=== PATIENT | female | born 1975 | race American Indian/Alaskan Native ===

== ENCOUNTER 2020-09-04 00:19 | Emergency (ER) | payer SELFPAY ==
[2020-09-04 00:38] VITALS: BP 143/88
[2020-09-04 01:33] LABS: Basophils % (Auto) 0.4 % (0.0-1.8); Eosinophils # (Auto) 0.1 K/mm3 (0.0-0.4); Eosinophils % (Auto) 0.6 % (0.0-4.3); Hemoglobin 12.4 gm/dl (10.1-14.3); Lymphocytes # (Auto) 3.8 K/mm3 (1.2-5.4); Lymphocytes % (Auto) 39.4 % (13.4-35.0); Mean Corpuscular HGB Conc 33 % (30-34); Mean Corpuscular Volume 85 fl (79-97); Monocytes # (Auto) 0.6 K/mm3 (0.0-0.8); Monocytes % (Auto) 6.2 % (0.0-7.3); Platelet Count 336 K/mm3 (140-440); Red Cell Distribution Width 15.5 % (13.2-15.2)
[2020-09-04 01:58] LABS: Alanine Aminotransferase 12 units/L (7-56); Albumin 4.1 g/dL (3.9-5); BUN/Creatinine Ratio 13; Blood Urea Nitrogen 10 mg/dL (7-17); Calcium 9.5 mg/dL (8.4-10.2); Hemolysis Index 5
[2020-09-04 02:05] LABS: Red Blood Count 4.31 M/mm3 (3.65-5.03)
[2020-09-04 02:38] LABS: Bacteria,Urine 2+ /HPF (Negative); Bilirubin,Urine NEG (Negative); Blood,Urine SM (Negative); Color,Urine Yellow (Yellow); Mucus,Urine FEW /HPF; Urobilinogen,Urine < 2.0 mg/dL (<2.0)
[2020-09-04] MEDS ORDERED: SODIUM CHLORIDE 0.9% 1000 ML 1,000 ML IV ONE (07:18)
--- NOTE | 2020-09-04 07:31 | Emergency Department Report ---
ED Abdominal Pain HPI - General Chief Complaint: Abdominal Pain Stated Complaint: ABD PAIN Time Seen by Provider: 09/04/20 07:17 Source: patient Mode of arrival: Ambulatory Limitations: No Limitations - History of Present Illness Initial Comments: 45-year-old -Malt[place] female presents to the emergency room reporting she is been constipated for 1 week. Patient states that she gets she has states and other medications and presents now to the emergency room for abdominal bloating and discomfort. Patient denies any fever chills she denies any nausea or vomiting or diarrhea. She reports since she has been here she has had a large bowel movement and feels much better now. Patient's last menstrual period 08/28/2020. Patient reports she does not have any pain at this time but when she does not go to the bathroom for a while she will have pain to the left side of her abdomen. Patient denies any past medical history currently takes no medic ations on a daily basis and has no known drug allergies. MD Complaint: abdominal pain Onset/Timin -: week(s) Location: LLQ Radiation: none Migration to: no migration Severity scale (0 -10): 0 Improves With: bowel movement Worsens With: other (Constipation) Associated Symptoms: constipation. denies: nausea, vomiting, diarrhea, chills, dysuria - Related Data Previous Rx's Medication Instructions Recorded Last Taken Type Polyethylene Glycol 3350 [Miralax] 17 gm PO QDAY PRN #238 powder 09/04/20 Unknown Rx Allergies Allergy/AdvReac Type Severity Reaction Status Date / Time No Known Allergies Allergy Unverified 09/04/20 00:39 ED Review of Systems ROS: Stated complaint: ABD PAIN Other details as noted in HPI Comment: All other systems reviewed and negative ED Past Medical Hx - Past Medical History Previous Medical History?: Yes Hx Hypertension: Yes - Surgical History Past Surgical History?: No - Social History Smoking Status: Never Smoker Substance Use Type: None - Medications Home Medications: Home Medications Medication Instructions Recorded Confirmed Last Taken Type Polyethylene Glycol 3350 [Miralax] 17 gm PO QDAY PRN #238 powder 09/04/20 Unknown Rx ED Physical Exam - General Limitations: No Limitations General appearance: alert, in no apparent distress - Head Head exam: Present: atraumatic, normocephalic - Eye Eye exam: Present: normal appearance - ENT ENT exam: Present: mucous membranes moist - Neck Neck exam: Present: normal inspection, full ROM - Respiratory Respiratory exam: Present: normal lung sounds bilaterally - Cardiovascular Cardiovascular Exam: Present: regular rate - GI/Abdominal GI/Abdominal exam: Present: soft, normal bowel sounds. Absent: distended, tenderness, guarding - Back Exam Back exam: Present: full ROM - Neurological Exam Neurological exam: Present: alert, oriented X3, CN II-XII intact, normal gait - Psychiatric Psychiatric exam: Present: normal affect, normal mood - Skin Skin exam: Present: warm, dry, intact, normal color. Absent: rash ED Course Vital Signs 09/04/20 00:35 Temperature 98.0 F Pulse Rate 113 H Respiratory 18 Rate Blood Pressure 143/88 O2 Sat by Pulse 100 Oximetry ED Medical Decision Making - Lab Data Result diagrams: 09/04/20 00:51 09/04/20 00:51 - Medical Decision Making 45-year-old -Maltese female presents to the emergency room reporting she is been constipated for 1 week. Patient states that she gets she has states and other medications and presents now to the emergency room for abdominal bloating and discomfort. Patient denies any fever chills she denies any nausea or vomiting or diarrhea. She reports since she has been here she has had a large bowel movement and feels much better now. Patient's last menstrual period 08/28/2020. Patient reports she does not have any pain at this time but when she does not go to the bathroom for a while she will have pain to the left side of her abdomen. Patient denies any past medical history currently takes no medications on a daily basis and has no known drug allergies. In review of patient's labs it is noted that patient has an elevated glucose of 242 and in the urine it is greater than 500 glucose. Repeat of her [id number] glucose shows that patient is now 105. Patient's discomfort has i mproved since she has had a bowel movement. I feel patient is stable to be needed discharge home with instructions to take [id number] MiraLAX if she is not able to move her bowels in 24 hours. Also will refer patient to a primary care provider for continuity of care. Pulse at discharge is 99 oxygen level 100% Critical care attestation.: If time is entered above; I have spent that time in minutes in the direct care of this critically ill patient, excluding procedure time. ED Disposition Clinical Impression: Constipation, Elevated random blood glucose level Disposition: DC-01 TO HOME OR SELFCARE Is pt being admited?: No Does the pt Need Aspirin: No Condition: Stable Instructions: Abdominal Pain (ED), Constipation (ED), High Fiber Diet (ED) Additional Instructions: Please use the MiraLAX as prescribed. If you notice you are having loose stools then discontinue the MiraLAX. It is important for you to follow-up with a primary care provider and a dry wall installer within the next week. Please increase your fluid intake increase your fiber intake. Prescriptions: Polyethylene Glycol 3350 [Miralax] 17 gm PO QDAY PRN #238 powder PRN Reason: Constipation Referrals: BRITTANIE PHAN MD [Primary Care Provider] - 3-5 Days [facility] [Provider Group] - 3-5 Days Forms: Work/School Release Form(ED)
== END 2020-09-04 07:44 | disposition home or self-care (01) ==
LOC: ED 00:19
DX: K59.00 Constipation, unspecified (principal); R73.09 Other abnormal glucose; I10 Essential (primary) hypertension; Z79.899 Other long term (current) drug therapy
CPT/HCPCS: 36415; 80053; 81001; 82962; 84703; 85025

== ENCOUNTER 2021-05-22 11:49 | Emergency (ER) | payer SELFPAY ==
[2021-05-22] MEDS ORDERED: TETANUS,DIPH,PERTUSS(ACELL) VACCINE 0.5 ML SYRINGE IM ONE (16:15)
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
[2021-05-22 16:43] VITALS: BP 130/80
== END 2021-05-22 17:12 | disposition home or self-care (01) ==
LOC: ED 11:49
DX: S00.511A Abrasion of lip, initial encounter (principal); I10 Essential (primary) hypertension; Z79.899 Other long term (current) drug therapy; Y04.8XXA Assault by other bodily force, initial encounter; Y93.89 Activity, other specified; Y92.89 Other specified places as the place of occurrence of the external cause; Y99.8 Other external cause status
CPT/HCPCS: 90471; 90715; 99282